=== PATIENT | male | born 1990 | race African-American/Black ===

== ENCOUNTER 2017-07-03 19:21 | Emergency (ER) | payer SELFPAY ==
[2017-07-03] MEDS: ALPRAZolam 0.25 MG TABLET PO ×2 (20:10)
[2017-07-03] MEDS: IV NORMAL SALINE 1000ML BAG 1,000 ML IV ×2 (20:13)
[2017-07-03] MEDS: THIAMINE 100 MG TABLET. PO ×2 (20:15)
[2017-07-03 20:19] LABS: AGAP ISTAT 16 mmol/L (6-14); BUN ISTAT 14 mg/dL (8-26); CHLORIDE ISTAT 100 mmol/L (98-110); CREATININE ISTAT 1.1 mg/dL (0.5-1.4); GLUCOSE ISTAT 176 mg/dL (70-99); HEMATOCRIT ISTAT 42 % (37-52); HEMOGLOBIN ISTAT 14.3 g/dL (14-18); ION CA ISTAT 1.14 mmol/L (1.13-1.32); POTASSIUM ISTAT 3.8 mmol/L (3.5-5.0); SODIUM ISTAT 138 mmol/L (135-145); TOT CO2 ISTAT 27 mmol/L (23-32)
== END 2017-07-03 21:39 | disposition home or self-care (01) ==
LOC: ER 19:21
DX: F41.9 Anxiety disorder, unspecified (principal); F10.10 Alcohol abuse, uncomplicated; F12.10 Cannabis abuse, uncomplicated; F17.200 Nicotine dependence, unspecified, uncomplicated; Z91.013 Allergy to seafood; Z91.018 Allergy to other foods
CPT/HCPCS: 36415; 80047; 85014; 85018; 96360; 99284-25; J7030

== ENCOUNTER 2017-07-06 16:28 | Emergency (ER) | payer SELFPAY ==
[2017-07-06] MEDS: hydrOXYzine PAMOATE 25 MG CAPSULE PO ×2 (18:47)
== END 2017-07-06 18:50 | disposition home or self-care (01) ==
LOC: ER 16:28
DX: F41.0 Panic disorder [episodic paroxysmal anxiety] (principal); F12.10 Cannabis abuse, uncomplicated; F10.20 Alcohol dependence, uncomplicated; Z91.013 Allergy to seafood; Z91.018 Allergy to other foods
CPT/HCPCS: 99284; Q0177